=== PATIENT | male | born 1995 | race Caucasian/White ===

== ENCOUNTER 2021-01-22 02:50 | Emergency (ER) | payer SELFPAY ==
[~2021-01-22] VITALS: Ht 180.3 cm; Wt 77.1 kg
[2021-01-22 02:56] VITALS: BP 132/93
--- NOTE | 2021-01-22 03:00 | NUR ---
PT AMBULATED TO ED BED 11.
--- NOTE | 2021-01-22 03:07 | NUR ---
Dr. Patel examining patient.
--- NOTE | 2021-01-22 03:08 | NUR ---
PATIENT 25 Y.O. BIB SELF C/O DIZZINESS S/P USE OF DRUG: "SPEED" ON FRIDAY AT 0200. A&O X4. PATIENT DENIES SOB, BREATHING IS UNLABORED. PATIENT STATES HE FEELS, "WEIRD AND SHAKEY". SEE COMPLETE ASSESSMENT FOR FURTHER DETAILS. MEDICAL HX: DENIES ALLERGIES: NKA
[2021-01-22] MEDS ORDERED: LORazepam 1 MG TAB PO ONE (03:10)
--- NOTE | 2021-01-22 03:44 | NUR ---
LIZ REASSESSED PATIENT, PATIENT STATING "I FEEL MORE RELAXED".
[2021-01-22 03:45] VITALS: BP 132/93
--- NOTE | 2021-01-22 03:45 | NUR ---
Patient discharged with v/s stable. Written and verbal after care instructions given and explained. Patient verbalized understanding. Ambulatory with steady gait. All questions addressed prior to discharge. Advised to follow up with PMD.
== END 2021-01-22 03:45 | disposition home or self-care (01) ==
LOC: MED 02:50
DX: F15.10 Other stimulant abuse, uncomplicated (principal)
CPT/HCPCS: 99283